=== PATIENT | female | born 1990 | race Caucasian/White ===

== ENCOUNTER 2020-08-24 17:28 | Emergency (ER) | payer SELFPAY ==
[2020-08-24] MEDS ORDERED: HYDROCODONE/ACETAMINOPHEN 5-325 MG TABLET PO ONE (17:51)
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
[2020-08-24] MEDS: LIDOCAINE 1% INJ-PF (10 MG/ML) 30 ML SDV INJ ONE ×2 (19:23→20:32)
[2020-08-24] MEDS ORDERED: IBUPROFEN 600 MG TABLET PO ONE (19:31)
[2020-08-24] MEDS ORDERED: DIPH/PERTUSS(ACELL)/TETANUS VAC/PF 0.5 ML SYR (>=10YO) IM ONE (20:10)
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
[2020-08-24] MEDS ORDERED: HYDROCODONE/ACETAMINOPHEN 5-325 MG (6 TAB/ER DISP) PO PRN (20:32)
[2020-08-24 20:34] VITALS: BP 137/94
== END 2020-08-24 20:42 | disposition home or self-care (01) ==
LOC: ER 17:28
DX: S82.891D Other fracture of right lower leg, subsequent encounter for closed fracture with routine healing (principal); S92.011D Displaced fracture of body of right calcaneus, subsequent encounter for fracture with routine healing; V46 Car occupant injured in collision with other nonmotor vehicle; Z23 Encounter for immunization
CPT/HCPCS: 81025; 90471; 90715; 99284; J3490